=== PATIENT | male | born 1990 | race Caucasian/White ===

== ENCOUNTER 2021-10-13 07:36 | Day surgery (SDC) | payer OTHER ==
[~2021-10-13] VITALS: Ht 167.6 cm; Wt 90.0 kg
[2021-10-13] VITALS (8 sets, daily range): BP systolic 105–128; BP diastolic 54–86
[2021-10-13 08:43] LABS: HEMATOCRIT 43.1 % (39.0-50.0); IMMATURE GRANULOCYTES 0.1 % (0.0-5.0); MEAN CELL VOLUME 86.7 fL CALC (80.0-100.0); MEAN CORPUSCULAR HGB 28.2 pG CALC (26.0-32.0); MEAN CORPUSCULAR HGB CONC 32.5 g/dL CAL (32.0-36.0); NEUT# 3.63 thou/uL (1.82-7.42); RED BLOOD COUNT 4.97 mill/uL (4.70-6.10)
[2021-10-13 09:19] LABS: ALBUMIN 3.9 g/dL (3.2-5.0); ALKALINE PHOSPHATASE 56 u/l (38-126); ANION GAP 6 (6-22 (CALC)); BILIRUBIN, TOTAL 0.3 mg/dL (0.0-1.4); BUN 10 mg/dL (9-20); BUN/CREATININE RATIO 16 (12-20 (CALC)); CARBON DIOXIDE 30 mmol/l (22-30); CHLORIDE 103 mmol/l (95-108); CREATININE 0.6 mg/dL (0.7-1.3); GFR > 60 ML/MIN (>=60 (CALC)); GFR FOR AFR.AMER. > 60 ML/MIN (>=60 (CALC)); POTASSIUM 3.6 mmol/l (3.5-5.1); SGOT/AST 21 u/l (17-59); SODIUM 135 mmol/l (137-146); TOTAL PROTEIN 6.7 g/dL (6.3-8.2)
[2021-10-14 04:49] VITALS: BP 125/70
[2021-10-14 06:46] LABS: HEMATOCRIT 43.2 % (39.0-50.0); HEMOGLOBIN 14.6 g/dl (14.0-18.0); IMMATURE GRANULOCYTES 0.2 % (0.0-5.0); MEAN CELL VOLUME 83.1 fL CALC (80.0-100.0); MEAN CORPUSCULAR HGB 28.1 pG CALC (26.0-32.0); MEAN CORPUSCULAR HGB CONC 33.8 g/dL CAL (32.0-36.0); NEUT# 11.91 thou/uL (1.82-7.42); RED BLOOD COUNT 5.2 mill/uL (4.70-6.10)
[2021-10-14 07:04] LABS: ALBUMIN 4.1 g/dL (3.2-5.0); ALKALINE PHOSPHATASE 62 u/l (38-126); ANION GAP 12 (6-22 (CALC)); BILIRUBIN, TOTAL 0.3 mg/dL (0.0-1.4); BUN 9 mg/dL (9-20); BUN/CREATININE RATIO 16 (12-20 (CALC)); CHLORIDE 109 mmol/l (95-108); CREATININE 0.6 mg/dL (0.7-1.3); GFR > 60 ML/MIN (>=60 (CALC)); GFR FOR AFR.AMER. > 60 ML/MIN (>=60 (CALC)); MAGNESIUM 2.2 mg/dL (1.6-2.3); POTASSIUM 3.8 mmol/l (3.5-5.1); SGOT/AST 26 u/l (17-59); SODIUM 140 mmol/l (137-146); TOTAL PROTEIN 6.8 g/dL (6.3-8.2)
[2021-10-14 07:06] LABS: CARBON DIOXIDE 23 mmol/l (22-30)
[2021-10-14 09:25] VITALS: BP 110/56
== END 2021-10-14 14:40 | disposition home or self-care (01) | DRG 897 ==
LOC: ANR 07:36 → MS2 07:37 → ANR 10:05
PROVIDERS: ATTEND Anesthesiology
DX: F11.20 Opioid dependence, uncomplicated (principal)
CPT/HCPCS: J2060; J2354